=== PATIENT | female | born 1950 | race Caucasian/White ===

== ENCOUNTER 2016-09-22 15:55 | Outpatient (CLI) | payer OTHER ==
[~2016-09-22] VITALS: Ht 149.9 cm; Wt 53.6 kg
--- NOTE | 2016-09-22 15:56 | PN ---
Date/Time of Note Date/Time of Note DATE: 09/22/16 TIME: 15:56 Outpatient Progress Note Chief Complaint Chest pain/epigastric pain/labile hypertension/hyperlipidemia/depression HPI Chest pain/patient has mild chest pain, mostly retrosternal minimal, but mostly in the epigastric area, no nausea or vomiting, no jaundice, no palpitation, no back pain, pain does not radiate to left arm or shoulder, or back, patient was recently hospitalized, patient's pain slightly better, Epigastric pain/patient has mostly epigastric pain, occasional heartburn, no hematemesis or melena, no history of any ulcer, Hypertension/patient blood pressure slightly elevated today, no headache or dizziness, no local focal weakness, Hyperlipidemia/no xanthoma, on medication, no side effect of medication, Depression/patient has slight depression and anxiety, no insomnia or suicidal idea, Review of Systems Const: No Fever, no chills, no Wt. loss, no Fatigue, normal appetite, no diaphoresis. Eyes: No pain, no discharge, no redness, no visual change, no foreign body. ENT: No pain, no bleeding, no congestion, no sore throat, no dysphagia, no discharge or rhinitis. Lymph: No adenopathy, no tender nodes, no lymphedema. Resp: No SOB, no cough, no sputum, no wheezing, no chest pain. CV: Mild chest pain, no palpitaions, no DENISE, no PND, no edema. GI: Normal appetite, epigastric pain, no nausea, no vomiting, no diarrhea, no blood, no constipation. : No frequency, no urgency, no dysuria, no hematuria, no flank pain, no discharge, no bleeding. Musc: No bone/joint pain, no back pain, no neck pain, no knee pain, no restricted ROM. Skin: No rash, no skin lesions, no erythema, no laceration, no bruising, no pruritus. Neuro: No KAMARA, no dizziness, no syncope, no seizure, no focal-weakness. Endo: No polyuria, no polydypsia, no dry-skin, no temp-intolerance. Psych: No hallucinations, no depression, no anxiety, no suicidal ideation. Ext: No edema, no pain, no ulcer, no weakness. Physical Exam Vital Signs Date Time Temp Pulse Resp B/P Pulse Ox O2 Delivery O2 Flow Rate FiO2 09/22/16 16:07 98.2 80 16 148/69 99 Room Air General Appearance: A 66 year-old female who appears well-developed, well- nourished, in no acute distress. HEENT: Head normocephalic, atraumatic. Pupils equal, round, reactive to light and accommodate. Sclerae are no jaundice. Nasal turbinates pink without erythema or nasal discharge. Mucous membranes pink and moist without lesions. Oropharynx clear without any exudate or discharge. NECK: Supple. Trachea midline, No thyromegaly, No cervical lymphadenopathy, No mass, No carotid bruits, No JVD, Carotid pulses 2+ bilaterally. PULMONARY: Clear to auscultaion bilaterally, No retractions, Chest expansion symmetric bilaterally, no rales, no ronchi, no dulness on percussion. CARDIAC: Normal SI and S2, Regular rate and rythm, no murmur, gallop, or rub. GASTROINTESTINAL: Abdomen is soft, mild epigastric discomfort,, Non Rigid, No distention, Positive bowel sounds x4 quadrants, Liver normal. SKIN: Warm, dry, no rash, no bruise, no echmosis., No laceration, EXTREMITIES: Bilateral lower extremities normal, no edema, no phlabitus, pulse palpable, no contracture. MUSCULOSKELETAL: Spine Normal, Non-tender, Normal range of motion, No swelling, no deformity, no clubbing, or cyanosis, the patient has no edema to bilateral lower extremities, dorsalis pedis pulses palpable bilaterally. NEUROLOGIC: The patient is awake, alert, oriented, responding to yes/no questions appropriately, moving all extremities, cranial nerve intact, normal strenght, normal power, normal coordination, normal gait. [facility] Patient was recently admitted with a chest pain,/labile hypertension/ hyperlipidemia/depression Social Hx No smoking no drugs, Allergy, Family Hx Noncontributory Assessment/Plan Impression Chest pain/epigastric pain/hyperlipidemia/labile hypertension/depression Plan Continue all medication, patient education done about chest pain and hypertension and hyperlipidemia, Patient is not taking and baby aspirin, patient advised to take baby aspirin 81 mg daily, and she will buy [id number], Patient already taking medication for hyperlipidemia, patient blood pressure today slightly high, discussed with the patient to document all the blood pressure and bring it either here [place] to primary care physician, Patient has mostly epigastric discomfort, and heartburn, will start Protonix or equivalent, 40 mg daily, #30, Patient encouraged to follow with the primary care physician, and call primary care physician, if any problem Medications Home Meds Reported Medications Amlodipine Besylate* (Amlodipine Besylate*) 10 Mg Tablet, 10 MG PO DAILY for ELEVATED SYSTOLIC BP, #30 TAB 09/22/16 Paroxetine Hcl* (Paroxetine*) 10 Mg Tablet, 10 MG PO DAILY, TAB 09/22/16 Lisinopril* (Lisinopril*) 30 Mg Tablet, 30 MG PO DAILY, #30 TAB 09/22/16 ESTEFANIA CONTRERAS MD Sep 22, 2016 15:56
[2016-09-22 16:07] VITALS: BP 148/69; PULSE 80; RESP 16; Ht 149.9 cm; Wt 53.6 kg
[2016-09-22] MEDS ORDERED: PARO10TA76 PO (16:07)
[2016-09-22] MEDS ORDERED: AMLO-147 PO (16:07)
[2016-09-22] MEDS ORDERED: LISI30TA47 PO (16:07)
== END 2016-09-22 16:35 | disposition home or self-care (01) ==
LOC: DCC 15:55
PROVIDERS: ATTEND Internal Medicine
DX: R07.9 Chest pain, unspecified (principal); R10.13 Epigastric pain; E78.5 Hyperlipidemia, unspecified; I10 Essential (primary) hypertension; F32.9 Major depressive disorder, single episode, unspecified
CPT/HCPCS: G0463